=== PATIENT | male | born 1950 | race Caucasian/White ===

== ENCOUNTER 2018-01-28 00:04 | Observation (INO) ==
--- NOTE | 2018-01-28 00:11 | Emergency Department Note ---
Disposition Clinical Impression: Palpitations Disposition: Admitted As Inpatient Condition: Undetermined General Adult HPI - General Stated complaint: think im having a heat attack Time Seen by Provider: 01/28/18 00:10 - Related Data Allergies Allergy/AdvReac Type Severity Reaction Status Date / Time No Known Allergies Allergy Verified 01/28/18 01:07 Course Vital Signs Temperature 98.7 F 01/28/18 00:10 Pulse Rate 117 01/28/18 00:10 Respiratory Rate 18 01/28/18 00:10 Blood Pressure 130/90 01/28/18 00:10 O2 Sat by Pulse Oximetry 98 01/28/18 00:10 Temperature 97.6 F 01/28/18 04:45 Pulse Rate 79 01/28/18 04:45 Respiratory Rate 16 01/28/18 04:45 Blood Pressure 127/62 01/28/18 04:45 O2 Sat by Pulse Oximetry 96 01/28/18 04:45 Oxygen Delivery Oxygen Delivery Room Air Medical Decision Making - Lab Data Result diagrams: 01/28/18 00:33 01/28/18 00:33 Lab Results 01/28/18 01/28/18 01/28/18 Range/Units 00:33 00:33 00:33 WBC 7.3 (4.3-11.1) K/mcL RBC 4.95 (4.19-5.50) M/mcL Hgb 14.0 (12.9-16.9) g/dL Hct 42.6 (37.5-50.1) % MCV 86.1 (83.0-100.0) fL MCH 28.3 (28.0-33.3) pg MCHC 32.9 (31.6-35.5) g/dL RDW 13.2 (11.5-14.5) % Plt Count 161 (140-400) K/mcL MPV 11.3 (9.4-12.4) fL Immature Gran % 0.3 (0-4) % Seg Neutrophils % 75.2 % Lymphocytes % 14.7 % Monocytes % 6.8 % Eosinophils % 2.3 % Basophils % 0.7 % Neutrophils # 5.5 (1.6-8.9) K/mcL Lymphocytes # 1.1 (0.6-4.6) K/mcL Monocytes # 0.5 (0.0-1.3) K/mcL Eosinophils # 0.2 (0.0-0.6) K/mcL Basophils # 0.1 (0.0-0.2) K/mcL PT 12.3 H (9.4-12.1) Seconds INR 1.1 APTT 30.3 (26.0-36.0) Seconds D-Dimer 294 (0-500) ng/mLFEU Sodium 137 (136-145) mEq/L Potassium 3.1 L (3.5-5.1) mEq/L Chloride 99 (98-107) mEq/L Carbon Dioxide 27 (23-29) mEq/L BUN 18 (8-23) mg/dL Creatinine 0.89 (0.70-1.30) mg/dL Est GFR ( Amer) > 60 (> 60) Est GFR (Non-Af Amer) > 60 (> 60) BUN/Creatinine Ratio 20 (6-26) Glucose 139 H (70-105) mg/dL Calculated Osmolality 288 (280-300) Calcium 9.6 (8.6-10.3) mg/dL Magnesium 1.8 (1.6-2.6) mg/dL Troponin I 0.03 (< 0.04) ng/mL TSH 3.183 (0.340-5.600) mcIU/mL Urine Color (Yellow) Urine Clarity (Clear) Urine pH (5.0-8.0) pH Units Ur Specific [place] (1.010-1.025) Urine Protein (Neg-Trace) mg/dL Urine Glucose (UA) (Normal) mg/dL Urine Ketones (Negative) mg/dL Urine Blood (Negative) Urine Nitrite (Negative) Urine Bilirubin (Negative) Urine Urobilinogen (Normal) mg/dL Ur Leukocyte Esterase (Negative) Ur Culture Indicated? (NO) 01/28/18 Range/Units 00:49 WBC (4.3-11.1) K/mcL RBC (4.19-5.50) M/mcL Hgb (12.9-16.9) g/dL Hct (37.5-50.1) % MCV (83.0-100.0) fL MCH (28.0-33.3) pg MCHC (31.6-35.5) g/dL RDW (11.5-14.5) % Plt Count (140-400) K/mcL MPV (9.4-12.4) fL Immature Gran % (0-4) % Seg Neutrophils % % Lymphocytes % % Monocytes % % Eosinophils % % Basophils % % Neutrophils # (1.6-8.9) K/mcL Lymphocytes # (0.6-4.6) K/mcL Monocytes # (0.0-1.3) K/mcL Eosinophils # (0.0-0.6) K/mcL Basophils # (0.0-0.2) K/mcL PT (9.4-12.1) Seconds INR APTT (26.0-36.0) Seconds D-Dimer (0-500) ng/mLFEU Sodium (136-145) mEq/L Potassium (3.5-5.1) mEq/L Chloride (98-107) mEq/L Carbon Dioxide (23-29) mEq/L BUN (8-23) mg/dL Creatinine (0.70-1.30) mg/dL Est GFR ( Amer) (> 60) Est GFR (Non-Af Amer) (> 60) BUN/Creatinine Ratio (6-26) Glucose (70-105) mg/dL Calculated Osmolality (280-300) Calcium (8.6-10.3) mg/dL Magnesium (1.6-2.6) mg/dL Troponin I (< 0.04) ng/mL TSH (0.340-5.600) mcIU/mL Urine Color Yellow (Yellow) Urine Clarity Clear (Clear) Urine pH 7.0 (5.0-8.0) pH Units Ur Specific [place] 1.010 (1.010-1.025) Urine Protein Negative (Neg-Trace) mg/dL Urine Glucose (UA) Normal (Normal) mg/dL Urine Ketones Negative (Negative) mg/dL Urine Blood Negative (Negative) Urine Nitrite Negative (Negative) Urine Bilirubin Negative (Negative) Urine Urobilinogen Normal (Normal) mg/dL Ur Leukocyte Esterase Negative (Negative) Ur Culture Indicated? NO (NO) Attestation Statement - Attestation Attestation: For this encounter, I have reviewed the DIRECT SERVICE WORKER or PA documentation, treatment plan, and medical decision making; and I have had face to face time with this patient. [id number] time provided Patient seen upon his arrival to the medical treatment area. He had complained of some chest pain. He appears in no acute distress on exam. EKG reviewed by me
--- NOTE | 2018-01-28 00:45 | Emergency Department Note ---
Disposition Clinical Impression: Palpitations Disposition: Admitted As Inpatient Condition: Undetermined Forms: ED Satisfaction Letter General Adult HPI - General Chief complaint: ED Arrhythmia/Palpitations Stated complaint: think im having a heat attack Time Seen by Provider: 01/28/18 00:10 Source: patient Mode of arrival: EMS Limitations: no limitations Nursing Notes Reviewed: Yes Vital Signs Reviewed: Yes - History of Present Illness HPI Narrative: Patient presents emergency Department from home via EMS for one episode of lightheadedness and feeling extremely hot, accompanied with lightheadedness and dizziness that lasted only a few minutes and then slowly but surely patient began to feel like himself again, he stated that he felt like his heart was being very hard at times like when you awaken from a nightmare and then he felt it "flutter"which gave him a weird sensation. Patient with a new history of A. fib, chronic history of hypertension, prediabetes in August/2017. 2 attempts at a stress test have been unsuccessful due to patient being intolerable other procedure. Patient is having an echocardiogram in the morning and has had his metoprolol for 2 total doses all day as he is preparing for the echocardiogram. He states it was time for him to take his clonidine (2200) which he noted and he was still feeling after effects of being dizzy and warm so he called EMS to bring him here. He states the longer he has had a clonidine and his system the more normal he has felt and he is fairly certain that it was his low pressure making him feel this way. By the time he arrived in our emergency department he said he feels at baseline. Patient states nothing like this is ever happened to him before. Denies loss of consciousness, syncope, shortness of breath, dyspnea, chest pain , edema, nausea, vomiting, diarrhea, recent illness. He has been feeling palpitations however this is not more than his normal Home medications include clonidine 0.2 mg 3 times a day, metoprolol 50 mg in the morning 100 mg in the evening, fosinopril/HCTZ 20/12.5, atorvastatin 10 mg, vitamin D, aspirin 81 mg, amlodipine 2.5 mg. Patient states he has been on a beta nicholas for a very long time he used to be on atenolol and then either just before ordering after his PCP found the A. fib he was switched to metoprolol he stated he was switched because of a shortage for atenolol. Onset (ago): Just [employer]EL[employer] Location: chest Pain Scale: 0 Associated symptoms: Reports: chest pain (A little, though this is described more as palpitations), diaphoresis, shortness of breath. Denies: confusion, cough, fever/chills, headaches, loss of appetite, malaise, nausea/vomiting, rash , seizure, syncope, weakness Treatments Prior to Arrival: other (Prescription clonidine administration) - Related Data Allergies Allergy/AdvReac Type Severity Reaction Status Date / Time No Known Allergies Allergy Verified 01/28/18 01:07 All systems ED: reviewed and negative except as stated. Review of Systems: As Per HPI Constitutional: Reports: as per HPI. Denies: fever, chills, weakness Eyes: Reports: as per HPI. Denies: vision change ENT ED: Reports: as per HPI. Denies: ear pain, hearing loss, epistaxis, congestion, dysphagia Cardiovascular: Reports: palpitations, dyspnea on exertion. Denies: edema, syncope Respiratory: Reports: as per HPI, dyspnea (During palpitations) Gastrointestinal: Reports: as per HPI. Denies: abdominal pain, nausea, vomiting , diarrhea Genitourinary: Reports: as per HPI. Denies: urgency, dysuria, frequency, hematuria Integumentary: Denies: rash Neurological: Denies: headache, weakness, numbness Past Medical History - Past Medical History Attestation: Yes The following information was validated with the patient. Source: patient Medical history: Reports: atrial fibrillation, hypertension, other (Prediabetes) Psychiatric history: Reports: no psych history - Social History Smoking Status: Never smoker Smokeless Tobacco Status: Yes Alcohol use: Reports: occasionally Drug use: Reports: none Physical Exam - General Limitations: no limitations General appearance: alert, in no apparent distress - Head Head exam: atraumatic, normocephalic, normal inspection - Eye Eye exam: Present: normal appearance, PERRL, EOMI - ENT ENT exam: normal exam, mucous membranes moist - Neck Neck exam: Present: normal inspection, full ROM, trachea midline - Chest Chest inspection: Present: normal inspection, symmetric chest wall rise - Respiratory Respiratory exam: Present: normal lung sounds bilaterally - Cardiovascular Cardiovascular exam: Present: tachycardia, irregular rhythm - Abdominal Exam Abdominal exam: Present: soft, Non-Tender, normal bowel sounds. Absent: tenderness, distention, guarding, rebound, rigidity - Neurological Exam Neurological exam: Present: alert, oriented X3 - Psychiatric Psychiatric exam: Present: normal affect, normal mood - Skin Skin exam: Present: warm, dry, intact, normal color Course Course Narrative: Patient presents emergency Department from home via EMS for one episode of lightheadedness and feeling extremely hot, accompanied with lightheadedness and dizziness that lasted only a few minutes and then slowly but surely patient began to feel like himself again, he stated that he felt like his heart was being very hard at times like when you awaken from a nightmare and then he felt it "flutter"which gave him a weird sensation. Patient stated he was sitting in his chair and all this happened Patient with a new history of A. fib, chronic history of hypertension, prediabetes in August/2017. 2 attempts at a stress test have been unsuccessful due to patient being intolerable other procedure. Patient is having an echocardiogram in the morning and has had his metoprolol for 2 total doses all day as he is preparing for the echocardiogram. He states it was time for him to take his clonidine (2200) which he noted and he was still feeling after effects of being dizzy and warm so he called EMS to bring him here. He states the longer he has had a clonidine and his system the more normal he has felt and he is fairly certain that it was his low pressure making him feel this way. By the time he arrived in our emergency department he said he feels at baseline. Patient states nothing like this is ever happened to him before. He had dinner this evening and has had nothing to eat since with resolution of symptoms. He does not think this could have been going to all without eating or hypoglycemic attack, though he admits his never had a hypoglycemic attack. Denies loss of consciousness, syncope, shortness of breath, dyspnea, chest pain , edema, nausea, vomiting, diarrhea, recent illness. He has been feeling palpitations however this is not more than his normal Home medications include clonidine 0.2 mg 3 times a day, metoprolol 50 mg in the morning 100 mg in the evening, fosinopril/HCTZ 20/12.5, atorvastatin 10 mg, vitamin D, aspirin 81 mg, amlodipine 2.5 mg. Patient states he has been on a beta nicholas for a very long time he used to be on atenolol and then either just before ordering after his PCP found the A. fib he was switched to metoprolol he stated he was switched because of a shortage for atenolol. Very pleasant well-developed, well-hydrated elderly man. Respirations are easy and even on room air, he appears in no acute distress. He is able speak in full sentences without difficulty, alert and oriented 3. At time of arrival patient does not appear in any distress, he states that he is feeling back to normal, without palpitations, dizziness, lightheadedness. . He does not appear dry. He denies drug or alcohol use. Tachycardia probably from not having his metoprolol today as his body is used to having it. We will rule out cardiac causes as well as respiratory and the basic lab work. Differential diagnosis at this time dysrhythmias, ischemia, A. fib RVR, infectious etiologies, palpitations. He is noted to be tachycardic EKG shows sinus tachycardia with PVCs, comparison to old EKG with changes in axis, as well as possible ischemia. - Reevaluation(s) Reevaluation #1: Labs return benign, troponin within normal limits. Patient had continued to be tachycardic, regular 500 mL bolus patient heart rate now down under 100. Spoke with attending Dr. Le, admit patient for EKG changes, chest pain, palpitations, new onset A. fib for monitoring status. Spoke with Dr. Lopez hospitalist for admission. Hospitalist agreeable to take patient. We will replace potassium and give a Mac bolus while awaiting placement. Patient agreeable to admission. Time: 03:00 Vital Signs Temperature 98.7 F 01/28/18 00:10 Pulse Rate 117 01/28/18 00:10 Respiratory Rate 18 01/28/18 00:10 Blood Pressure 130/90 01/28/18 00:10 O2 Sat by Pulse Oximetry 98 01/28/18 00:10 Temperature 98.7 F 01/28/18 00:10 Pulse Rate 121 01/28/18 00:35 Respiratory Rate 18 01/28/18 00:35 Blood Pressure 136/90 01/28/18 00:35 O2 Sat by Pulse Oximetry 94 01/28/18 00:35 Oxygen Delivery Oxygen Delivery Room Air
[2018-01-28 00:50] LABS: Basophils # 0.1 K/mcL (0.0-0.2); Basophils % 0.7 %; Eosinophils # 0.2 K/mcL (0.0-0.6); Eosinophils % 2.3 %; Hematocrit 42.6 % (37.5-50.1); Immature Granulocytes % 0.3 % (0-4); Lymphocytes # 1.1 K/mcL (0.6-4.6); Lymphocytes % 14.7 %; Mean Corpuscular HGB Conc 32.9 g/dL (31.6-35.5); Mean Corpuscular Hemoglobin 28.3 pg (28.0-33.3); Mean Corpuscular Volume 86.1 fL (83.0-100.0); Mean Platelet Volume 11.3 fL (9.4-12.4); Monocytes # 0.5 K/mcL (0.0-1.3); Monocytes % 6.8 %; Neutrophils # 5.5 K/mcL (1.6-8.9); Platelet Count 161 K/mcL (140-400); Red Blood Count 4.95 M/mcL (4.19-5.50); Red Cell Distribution Width 13.2 % (11.5-14.5); Segmented Neutrophils % 75.2 %
[2018-01-28 01:00] LABS: Bilirubin,Urine Negative (Negative); Blood,Urine Negative (Negative); Clarity,Urine Clear (Clear); Color,Urine Yellow (Yellow); Glucose,Urine (UA) Normal (Normal); Ketones,Urine Negative (Negative); Leukocyte Esterase,Urine Negative (Negative); Nitrite,Urine Negative (Negative); Protein,Urine Negative (Neg-Trace); Urobilinogen,Urine Normal (Normal)
[2018-01-28 01:00] LABS: INR 1.1; Prothrombin Time 12.3 Seconds (9.4-12.1)
[2018-01-28 01:02] LABS: Activated Partial Thrombo Time 30.3 Seconds (26.0-36.0)
[2018-01-28 01:07] LABS: BUN/Creatinine Ratio 20 (6-26); Blood Urea Nitrogen 18 mg/dL (8-23); Calcium 9.6 mg/dL (8.6-10.3); Carbon Dioxide 27 mEq/L (23-29); Chloride 99 mEq/L (98-107); Glucose 139 mg/dL (70-105); Magnesium 1.8 mg/dL (1.6-2.6); Osmolality,Calculated 288 (280-300); Potassium 3.1 mEq/L (3.5-5.1); Sodium 137 mEq/L (136-145); eGFR For African Americans > 60 (> 60); eGFR For Non-African Americans > 60 (> 60)
[2018-01-28 01:09] LABS: Troponin I 0.03 ng/mL (< 0.04)
[2018-01-28 01:22] LABS: Thyroid Stimulating Hormone 3.183 mcIU/mL (0.340-5.600)
[2018-01-28] MEDS ORDERED: 0.9 % Sodium Chloride 500 ML IVC ONE (01:54)
[2018-01-28] MEDS ORDERED: Magnesium Sulfate 2 GM in D5% in Water 100 ML IVPB ONE (03:01)
--- NOTE | 2018-01-28 04:29 | Internal Med History&Physical ---
Date of Encounter: 01/28/18 Time of Encounter: 04:00 Assessment and Plan (1) Chest pain Current visit: Yes Status: Acute Most likely due to tachycardia and hypertension. However given his age and comorbidities, he does have high risk for coronary artery disease. Will monitor with telemetry. Trend troponins. Consult cardiology for further recommendations as patient did not tolerate stress test done as outpatient. Qualifiers: Chest pain type: precordial pain Qualified Code(s): R07.2 - Precordial pain (2) Atrial fibrillation Current visit: Yes Status: Chronic Patient with history of atrial fibrillation. Was tachycardic on arrival. Heart rate is now improved. We will monitor with telemetry. Resume home medications. Qualifiers: Atrial fibrillation type: paroxysmal Qualified Code(s): I48.0 - Paroxysmal atrial fibrillation (3) Essential hypertension Current visit: Yes Status: Chronic Blood pressure is now improved. Continue home medications. Internal Medicine - H&P: HPI Chief complaint: Palpitations, Chest discomfort Admitted From: Emergency Dept Plans for Post Hospital Care: Home History of present illness: Mr. Wright is a 67 year old male patient with history of atrial fibrillation who was scheduled to undergo 2-D echocardiogram today presented to the ER with complaints of palpitations or chest discomfort and hot flashes with sweats that began yesterday evening. He had held his metoprolol per cardiology recommendations prior to his procedure. His symptoms lasted for about an hour and subsided after he took his clonidine. He feels much better now and is back to baseline. He had mild lightheadedness associated with that but that has also resolved. No shortness of breath. No fever no chills. No pedal edema. He has not had similar symptoms in the past. He was recently diagnosed with atrial fibrillation and was being worked up for it. He had previously attempted a stress test last month as part of workup but was not able to complete it as he did not tolerate the procedure. He denies any episodes of chest pain prior to this episode. Past Med Surg Social Fam HX - Past Medical History Attestation: Yes The following information was validated with the patient. Medical history: atrial fibrillation, hypertension, other Psychiatric history: no psych history - Social History Smoking Status: Never smoker Smokeless Tobacco Status: Yes (chew) Alcohol use: occasionally Drug use: none - Family History Mother Living Status: Age at : 84 Cause of : cancer Hx Family Cancer: Yes Father Living Status: Age at : 58 Cause of : [place] Hx Family Cardiac Disorders: Yes Internal Medicine - H&P: Meds 3 Allergy/AdvReac Type Severity Reaction Status Date / Time No Known Allergies Allergy Verified 01/28/18 01:07 All Systems PM: A 10-system review of systems was performed and is negative for pertinent findings except as documented above in the HPI. - Constitutional Constitutional: excessive sweating, malaise, no chills, no fever(s), no night sweats - EENT Eyes: no change in vision, no discharge, no pain, no photophobia Ears: no ear discharge, no ear pain, no tinnitus Nose, mouth and throat: no dysphagia, no nasal discharge, no neck pain, no sore throat - Cardiovascular Cardiovascular ROS IM: palpitations, no chest pain, no diaphoresis, no dyspnea, no lightheadedness, no syncope - Respiratory Respiratory: no cough, no dyspnea, no wheezing, no excessive phlegm production - Gastrointestinal Gastrointestinal: no abdominal pain, no diarrhea, no hematemesis, no hematochezia, no melena, no nausea, no vomiting - Musculoskeletal Musculoskeletal ROS IM: no numbness, no tingling - Integumentary Integumentary IM: no rash, no unusual bruising - Neurological Neurological ROS: no confusion, no convulsions, no focal weakness, no numbness, no tingling, no tremor(s) - Hematologic/Lymphatic Hematologic/Lymphatic: no easy bruising - Constitutional Vitals: Temp Pulse Resp BP Pulse Ox 98.7 F 87 18 133/78 94 01/28/18 00:10 01/28/18 02:32 01/28/18 02:32 01/28/18 02:32 01/28/18 02:32 General appearance: Present: cooperative, A&O X 3, answers questions appropriately - Eye Eye exam: Present: EOMI, PERRL, conjuntiva pink, sclera anicteric - Respiratory Respiratory exam: Present: CTAB. Absent: accessory muscle use, rales, rhonchi, wheezes - Cardiovascular Cardiovascular exam: Present: irregular rhythm, +S1, +S2. Absent: diastolic murmur, gallop, rubs, systolic murmur - GI/Abdominal GI/Abdominal exam: Present: normal bowel sounds, soft, no peritoneal signs. Absent: distended, tenderness - Extremities Exam Extremities exam: Present: warm, radial pulses palpable and symmetrical. Absent : calf tenderness, cyanotic, pedal edema - Neurological Exam Neurological exam: Present: CN II-XII intact, oriented X3, no focal deficits. Absent: facial droop, speech deficit Internal Med - H&P Results - Labs CBC & Chem 7: 01/28/18 00:33 01/28/18 00:33 - EKG Data -: EKG Interpreted by Myself Rate: tachycardia - EKG Data Interpretation IM: ischemic changes (Lateral ST segment depression) EKG comments: 01/28/18 04:34 A. fib - Impressions Impressions Chest X-Ray 01/28/18 00:33 IMPRESSION: Negative portable chest. D/ / Luis Reynolds MD / Luis Reynolds MD Interpreting Provider: Luis Reynolds MD
[2018-01-28] MEDS ORDERED: Naloxone 0.4 MG/ML INJ IVP PRN (04:37)
[2018-01-28] MEDS ORDERED: *HR* Heparin 5,000 UNIT/ML VIAL IVP PRN ×2 (05:46)
[2018-01-28] MEDS ORDERED: *HR* Heparin 5,000 UNIT/ML VIAL IVP ONE (05:46)
[2018-01-28 06:16] LABS: Hematocrit 43.3 % (37.5-50.1); Hemoglobin 14.1 g/dL (12.9-16.9); Mean Corpuscular HGB Conc 32.6 g/dL (31.6-35.5); Mean Corpuscular Hemoglobin 28.3 pg (28.0-33.3); Mean Corpuscular Volume 86.8 fL (83.0-100.0); Mean Platelet Volume 11.7 fL (9.4-12.4); Platelet Count 185 K/mcL (140-400); Red Blood Count 4.99 M/mcL (4.19-5.50); Red Cell Distribution Width 13.4 % (11.5-14.5)
[2018-01-28] MEDS: Heparin 25,000 UNIT/500 ML D5W 25,000 UNIT/500 ML BAG IVC SCH (06:33)
[2018-01-28] MEDS: Aspirin Enteric Coated 81 MG Tablet PO SCH (08:39)
[2018-01-28 09:31] LABS: Hemoglobin A1C 6.2 %
--- NOTE | 2018-01-28 14:27 | Cardiology Consult Note ---
<Shasta Craig - Last Filed: 01/28/18 14:21> Date of Encounter: 01/28/18 Time of Encounter: 13:00 Assessment and Plan (1) Essential hypertension Current Visit: Yes Status: Chronic Per cardiology: -Presented to [facility] with SBP 200s. -On multiple medications at home. -BP now 120-130s. -Will continue to monitro. (2) Elevated troponin Current Visit: Yes Status: Acute Per cardiology: -Troponin 0.03, 0.1, 0.1 in the setting of hypertension with BP at home 200 systolic. -Denies chest pain. -NO acute ischemic ECG changes. ECG with ST, tele with frequent PACs. -TTE pending. -ON heparin drip. -DO not suspect NSTEMI, suspect demand ischemia related to above. NO cardiac rehab consult warranted. -Will start asa, statin, beta nicholas. -Anticipate cardiology sign off pending no significant findings on TTE. -Of note, can consider outpatient stress echocardiogram since unable to undergo nuc stress due to claustrophobia. Discussion w patient/family: The assessment and plan as outlined above was discussed with the patient who expressed understanding and agreement. All questions were answered. Thank you for involving us in the care of your patient. Please call with any questions. Discussed and reviewed with Dr.John Nava. History of Present Illness Consult date: 01/28/18 Requesting physician: Yandel Warner Consult reason: elevated troponin Chief complaint: HTN, facial flushing History of present illness: Mr. Wright is a 67 year old male with a relevant past medical history of HTN, DM , hyperlipidemia. Patient states he has been attempting to complete outpateint stress test and has been off his antihypertensives for stress. Patient reports unable to complete nuclear stress since he is claustrophobic. He states he has been off his antihypertensives for almost a week since multiple attempts have been made to complete stress test. Patient reports he was at home and had facial flushing, he checked his BP and noted it was 200 systolic. Patient reports he then came to [facility]. Denies chest pain, increased shrotness of breath, or increased fatigue. Past Med Surg Social Fam HX - Past Medical History Attestation: Yes The following information was validated with the patient. Source: patient, old records reviewed Medical history: atrial fibrillation, hypertension, other Psychiatric history: no psych history - Social History Smoking Status: Never smoker Smokeless Tobacco Status: Yes (chew) Alcohol use: occasionally Drug use: none - Family History Mother Living Status: Age at : 84 Cause of : cancer Hx Family Cancer: Yes Father Living Status: Age at : 58 Cause of : [place] Hx Family Cardiac Disorders: Yes Medications and Allergies Aspirin [Lo-Dose Aspirin EC] 81 mg PO DAILY 01/28/18 [History] Atorvastatin [Lipitor] 10 mg PO HS 01/28/18 [History] Cholecalciferol (D-3) [Vitamin D] 2,000 unit PO DAILY 01/28/18 [History] Lisinopril-HCTZ 20-12.5 [Prinzide 20-12.5] 1 tab PO DAILY 01/28/18 [History] Metoprolol [Lopressor] 50 mg PO QAM 01/28/18 [History] Metoprolol [Lopressor] 100 mg PO HS 01/28/18 [History] amLODIPine [Norvasc] 2.5 mg PO DAILY 01/28/18 [History] cloNIDine HCl [Clonidine HCl] 0.4 mg PO TID 01/28/18 [History] 3 Allergy/AdvReac Type Severity Reaction Status Date / Time No Known Allergies Allergy Verified 01/28/18 01:07 All Systems Review: The remainder of the systems were reviewed and are negative - Cardiovascular Cardiovascular: as per HPI Physical Examination Vital Signs, Last 4 Hours Temp Pulse Resp BP Pulse Ox 01/28/18 11:20 97.4 F L 61 16 153/91 94 General: Conversant, No Apparent Distress HEENT: Atraumatic, Normocephaly, Mucus Membranes Moist Neck: No JVD, Normal carotid pulses Cardiac: Reg Rate and Rhythm, Normal S1 and S2, No Murmur Lungs: Normal Breath Sounds, No Wheeze, Rales, Rhonchi Neuro: Alert and responsive, No focal deficits noted Abdomen: Soft, Non-Tender Skin: No rashes noted on visualized skin Musculoskeletal: No Chest Wall Tenderness Extremities: No Clubbing, No Cyanosis, No Edema, Normal Pulses Results 01/28/18 05:46 01/28/18 00:33 Lab Results Impressions Chest X-Ray 01/28/18 00:33 IMPRESSION: Negative portable chest. D/ / Luis Reynolds MD / Luis Reynolds MD Interpreting Provider: Luis Reynolds MD Active Medications Aspirin (Aspirin Ec) 81 mg PO DAILY EDEL Stop: 07/30/18 09:01 Last Admin: 01/28/18 08:39 Dose: 81 mg Heparin Sodium (Porcine) (Heparin) 4,000 unit IVP Q6HR PRN PRN Reason: SEE COMMENTS Stop: 07/30/18 05:47 Heparin Sodium (Porcine) (Heparin) 2,000 unit IVP Q6H PRN PRN Reason: SEE COMMENTS Stop: 07/30/18 05:47 Last Admin: 01/28/18 13:50 Dose: 2,000 unit Heparin Sodium/Dextrose (Heparin 25,000 Unit/500 Ml D5w) 25,000 unit in 500 mls @ 20.026 mls/hr IVC .Q24H EDEL; 9.8 UNIT/KG/HR PRN Reason: Protocol Stop: 07/30/18 06:01 Last Titration: 01/28/18 13:48 Dose: 11.74 unit/kg/hr, 24 mls/hr Naloxone HCl (Narcan) 0.4 mg IVP Q2MIN PRN PRN Reason: SEE COMMENTS Stop: 07/30/18 04:38 Laboratory Tests 01/28/18 01/28/18 01/28/18 00:33 00:33 04:51 Hgb 14.0 Creatinine 0.89 Troponin I 0.03 0.10 H* 01/28/18 10:32 Hgb Creatinine Troponin I 0.10 H* - Imaging and Cardiology Chest Xray: report reviewed Echo: pending - EKG Interpretation EKG results cardiology: personally reviewed (ECG with ST, HR 125.), other ( Telemetry reviewed with average HR previous 12 hours noted to be 78, SR with frequent PACS.) Consult Discharge Plan - Plan Referrals: Sydnee Thakkar, REMEDIAL TEACHER [Primary Care Provider] - <Sanjiv Nava - Last Filed: 01/28/18 16:05> Date of Encounter: 01/28/18 - Attending Attestation I have personally performed a face to face evaluation on this patient. I have reviewed and agree with the care plan. History and Exam by me shows: Admitted with palpitations. Noted to have frequent PACs. Has not been able to tolerate stress test. Would recommend restart BBlocker and outpt. stress echo. Assessment and Plan Discussion w patient/family: The assessment and plan as outlined above was discussed with the patient and/or family members who expressed understanding and agreement. All questions were answered. Thank you for involving us in the care of your patient. Please call with any questions. History of Present Illness History of present illness: Mr. Wright is a 67 year old male All Systems Review: The remainder of the systems were reviewed and are negative Physical Examination Vital Signs, Last 4 Hours Temp Pulse Resp BP Pulse Ox 01/28/18 15:17 97.9 F 75 16 155/76 97 Results 01/28/18 05:46 01/28/18 00:33 Lab Results 01/28/18 01/28/18 01/28/18 04:51 05:46 06:30 WBC 8.1 Hgb 14.1 Hct 43.3 Plt Count 185 APTT 31.0 Troponin I 0.10 H* 01/28/18 01/28/18 10:32 12:42 WBC Hgb Hct Plt Count APTT 53.7 H D Troponin I 0.10 H*
[2018-01-28] MEDS: Metoprolol XL (24 HR) Succ 25 MG TAB.ER.24H PO SCH (15:04)
--- NOTE | 2018-01-28 16:56 | Event Note ---
Date of Encounter: 01/28/18 Time of Encounter: 16:39 1. Chest pain: Presented with chest pain that started eating prior to arrival. Serial troponin troponin 0.03, 0.1, 0.1. EKG without acute ST changes. Recently had outpatient stress test which he was unable to complete due to claustrophobia. Chest pain now resolved. There was concern for an STEMI on arrival and he was started on heparin drip; continue for now. Cont home ASA, BB and statin. initiated per cardiology. Cardiology following; await further recommendations. TTE pending 2. HTN: per hx. BP uncontrolled on arrival; possibly contributing to chest pain. BP improved with resuming home BP medication. Monitor BP and titrate PRN 3. Paroxysmal atrial fibrillation: per patient reported hx. Not on anticoagulation at home (he states new diagnosis as of 08/2017 and PCP has been undecided on whether to initiate anticoagulation). Rate controlled. Continue home BB. Cardiology following 4. DVT prophyalxis: heparin gtt
[2018-01-28] MEDS ORDERED: Melatonin 3 MG TABLET PO SCH (23:15)
[2018-01-29] MEDS ORDERED: Lisinopril-HCTZ 20-12.5mg TABLET PO SCH (00:15)
[2018-01-29] MEDS: cloNIDine HCl 0.1 MG TABLET PO SCH ×3 (00:46→14:05)
[2018-01-29 01:21] LABS: Hematocrit 45.2 % (37.5-50.1); Hemoglobin 14.4 g/dL (12.9-16.9); Mean Corpuscular HGB Conc 31.9 g/dL (31.6-35.5); Mean Corpuscular Hemoglobin 27.4 pg (28.0-33.3); Mean Corpuscular Volume 86.1 fL (83.0-100.0); Mean Platelet Volume 11.3 fL (9.4-12.4); Platelet Count 187 K/mcL (140-400); Red Blood Count 5.25 M/mcL (4.19-5.50); Red Cell Distribution Width 13.4 % (11.5-14.5)
[2018-01-29 01:43] LABS: BUN/Creatinine Ratio 17 (6-26); Blood Urea Nitrogen 17 mg/dL (8-23); Calcium 9.9 mg/dL (8.6-10.3); Carbon Dioxide 27 mEq/L (23-29); Chloride 102 mEq/L (98-107); Glucose 105 mg/dL (70-105); Osmolality,Calculated 290 (280-300); Potassium 3.7 mEq/L (3.5-5.1); Sodium 139 mEq/L (136-145); eGFR For African Americans > 60 (> 60); eGFR For Non-African Americans > 60 (> 60)
[2018-01-29] MEDS: Heparin 25,000 UNIT/500 ML D5W 25,000 UNIT/500 ML BAG IVC SCH (04:45)
[2018-01-29] MEDS: Aspirin Enteric Coated 81 MG Tablet PO SCH (08:22)
[2018-01-29] MEDS: Metoprolol XL (24 HR) Succ 25 MG TAB.ER.24H PO SCH (08:22)
--- NOTE | 2018-01-29 11:14 | Cardiology Progress Note ---
Date of Encounter: 01/29/18 Time of Encounter: 11:11 Assessment and Plan (1) Elevated troponin Current Visit: Yes Status: Acute Per cardiology: -Troponin 0.03, 0.1, 0.1 in the setting of hypertension with BP at home 200 systolic. -Denies chest pain. -NO acute ischemic ECG changes. ECG with ST, tele with frequent PACs. -TTE pending. -ON heparin drip. -DO not suspect NSTEMI, suspect demand ischemia related to above. NO cardiac rehab consult warranted. Will stop heparin gtt. -Continue asa, statin, beta nicholas. -Of note, can consider outpatient stress echocardiogram since unable to undergo nuc stress due to claustrophobia. -TTE still pending. Cardiology signing off. Reconsult PRN or if significant findings on TTE. Will coordinate outpt follow-up in 2-3 weeks. (2) Essential hypertension Current Visit: Yes Status: Chronic Per cardiology: -Presented to [facility] with SBP 200s. -On multiple medications at home. -Hypertensive overnight, but 120s/70s this AM. Discussion w patient/family: The assessment and plan as outlined above was discussed with the patient and/or family members who expressed understanding and agreement. All questions were answered. Thank you for involving us in the care of your patient. Please call with any questions. I will discuss all the above with Dr. Sanjiv Nava and make changes as necessary. Subjective Principal diagnosis: Elevated troponin, hypertensive urgency Interval history: Pt denies chest pain, dyspnea, or any other acute cardiac complaints this AM. TTE pending. Objective Vital Signs, Last 4 Hours Temp Pulse Resp BP Pulse Ox 01/29/18 07:35 97.7 F 60 16 124/77 98 Vital Signs Temp Pulse Resp BP Pulse Ox 01/29/18 07:35 97.7 F 60 16 124/77 98 01/29/18 02:43 75 183/72 01/29/18 02:41 98 F 16 178/101 97 01/28/18 22:51 98 F 81 16 179/96 97 01/28/18 18:39 98.2 F 59 16 147/87 96 01/28/18 15:17 97.9 F 75 16 155/76 97 01/28/18 11:20 97.4 F L 61 16 153/91 94 Intake and Output 03/08/0901/29/18 01/29/18 23:59 07:59 15:59 Intake Total 400 / 400 256 / 256 240 / 240 Balance 400 / 400 256 / 256 240 / 240 Intake: IV Fluids 160 / 160 196 / 196 Heparin 25,000 UNIT/500 ML D5W 160 / 160 196 / 196 25,000 unit In 500 ml @ 9.8 UNIT/KG/HR 20.026 mls/hr IVC . Q24H EDEL Rx#:[id number] Oral 240 / 240 60 / 60 240 / 240 Other: Meal Dinner Breakfast Percent of Meal Consumed 100% 100% # Voids 1 2 Weight 101.877 kg Patient Weight 01/29/18 23:59 Weight 101.877 kg General: Conversant, No Apparent Distress HEENT: Atraumatic, Normocephaly, Mucus Membranes Moist Neck: No JVD, Normal carotid pulses Cardiac: Reg Rate and Rhythm, Normal S1 and S2, No Murmur Lungs: Normal Breath Sounds, No Wheeze, Rales, Rhonchi Neuro: Alert and responsive, No focal deficits noted Abdomen: Soft, Non-Tender Skin: No rashes noted on visualized skin Musculoskeletal: No Chest Wall Tenderness Extremities: No Clubbing, No Cyanosis, No Edema, Normal Pulses Results 01/29/18 01:04 01/29/18 01:04 Lab Results 01/28/18 01/28/18 01/28/18 10:32 12:42 19:04 WBC Hgb Hct Plt Count APTT 53.7 H D 64.3 H Sodium Potassium Chloride Carbon Dioxide BUN Creatinine Glucose Calcium Troponin I 0.10 H* 01/29/18 01/29/18 01/29/18 01:04 01:04 01:04 WBC 8.6 Hgb 14.4 Hct 45.2 Plt Count 187 APTT 69.2 H Sodium 139 Potassium 3.7 Chloride 102 Carbon Dioxide 27 BUN 17 Creatinine 1.03 Glucose 105 Calcium 9.9 Troponin I Short CBC 01/29/18 Range/Units 01:04 WBC 8.6 (4.3-11.1) K/mcL Hgb 14.4 (12.9-16.9) g/dL Hct 45.2 (37.5-50.1) % Plt Count 187 (140-400) K/mcL BMP 01/29/18 Range/Units 01:04 Sodium 139 (136-145) mEq/L Potassium 3.7 (3.5-5.1) mEq/L Chloride 102 (98-107) mEq/L Carbon Dioxide 27 (23-29) mEq/L BUN 17 (8-23) mg/dL Creatinine 1.03 (0.70-1.30) mg/dL Glucose 105 (70-105) mg/dL Calcium 9.9 (8.6-10.3) mg/dL Cardiac Enzymes 01/28/18 Range/Units 10:32 Troponin I 0.10 H* (< 0.04) ng/mL Active Medications Aspirin (Aspirin Ec) 81 mg PO DAILY EDEL Stop: 07/30/18 09:01 Last Admin: 01/29/18 08:22 Dose: 81 mg Atorvastatin Calcium (Lipitor) 40 mg PO HS [facility] Stop: 07/30/18 21:01 Last Admin: 01/28/18 20:29 Dose: 40 mg Clonidine HCl (Clonidine Hcl) 0.4 mg PO TID EDEL Stop: 07/31/18 00:16 Last Admin: 01/29/18 08:22 Dose: 0.4 mg Lisinopril/HCTZ (Prinzide 20-12.5) 1 each PO DAILY EDEL Stop: 07/31/18 00:16 Last Admin: 01/29/18 00:46 Dose: 1 each Melatonin (Melatonin) 6 mg PO HS EDEL Stop: 07/30/18 23:16 Last Admin: 01/28/18 23:23 Dose: 6 mg Metoprolol Succinate (Toprol Xl) 25 mg PO DAILY EDEL Stop: 07/30/18 14:46 Last Admin: 01/29/18 08:22 Dose: 25 mg Naloxone HCl (Narcan) 0.4 mg IVP Q2MIN PRN PRN Reason: SEE COMMENTS Stop: 07/30/18 04:38 - Imaging and Cardiology Echo: pending - EKG Interpretation EKG results cardiology: other (12 hr tele AVG HR 69, SR with frequent PACs.) Consult Discharge Plan - Plan Referrals: Sydnee Thakkar, CLASSIFICATION OFFICER [Primary Care Provider] -
[2018-01-29 11:18] VITALS: BP 99/61
--- NOTE | 2018-01-29 12:32 | Electrocardiograph Report ---
[address] [address] Test Date: 2018-01-28 Pat Name: Sanjiv Wright Department: 104 Room: 3B Gender: M Paralegal Specialist: : 1950 Requested By: Yandel Warner Order Number: [id number] Reading MD: Sanjiv Nava Measurements Intervals [place] Rate: 127 P: -4 MO: 234 QRS: 12 QRSD: 108 T: 105 QT: 347 QTc: 422 Interpretive Statements SINUS TACHYCARDIA WITH FIRST DEGREE AV BLOCK WITH FREQUENT VENTRICULAR PREMATURE COMPLEXES Electronically Signed On 01-29-2018 12:31:04 EST by Sanjiv Nava
--- NOTE | 2018-01-29 12:33 | Electrocardiograph Report ---
[place] [address] Test Date: 2018-01-28 Pat Name: Sanjiv Wright Department: 113 Room: 3B Gender: Reel Cutter: : 1950 Requested By: Judi Shaffer Order Number: [id number] Reading MD: Sanjiv Nava Measurements Intervals [place] Rate: 78 P: 30 MS: 192 QRS: 23 QRSD: 98 T: 54 QT: 412 QTc: 446 Interpretive Statements SINUS RHYTHM WITH FREQUENT SUPRAVENTRICULAR PREMATURE COMPLEXES ABNORMAL RHYTHM ECG Electronically Signed On 01-29-2018 12:31:51 EST by Sanjiv Nava
--- NOTE | 2018-01-29 13:44 | Discharge Summary ---
Orders not resulted at time of discharge: Pending orders 01/30/18 01:04 PTT [Activated Partial Thrombo Time] [COAG] Timed Date of Encounter: 01/29/18 Time of Encounter: 13:42 - Discharge Diagnosis (1) Elevated troponin Priority: Primary Status: Acute Comments: serial troponin 0.03, 0.1, 0.1 and in the setting of uncontrolled BP. EKG without acute ST changes. He did report chest pain on arrival which was likely secondary to uncontrolled blood pressure. Evaluated by Cardiology who did not suspect NSTEMI but rather demand ischemia related to uncontrolled HTN. 01/2018 TTE with EF 60%, no valvular dysfunction and no wall motion abnormalities. Of note, patient recently underwent stress test but unable to complete due to claustrophobia. Cont home ASA, statin, BB. Recommend outpatient cardiology follow-up (2) Essential hypertension Priority: Primary Status: Chronic Comments: per hx. BP uncontrolled on arrival with SBPs in 170s-180s. Etiology unknown as patient reports medication compliance. BP normalized with resuming home BP medication. Recommend follow-up with PCP within 1 week for BP recheck (3) Palpitations Priority: Primary Status: Acute Comments: per Cardiology note; patient had Holter monitor 09/2017 that showed PACs and episodes of SVT but no atrial fibrillation. No anticoagulation warranted at this time. Cont home BB Hospital course: Mr. Wright is a 67 year old male with past cycle history essential hypertension and palpitations who presented to [facility] on 01/28/2018 with chest pain. He was found to have uncontrolled BP and there was initially concern for an STEMI with possible new ST segment depression on EKG and elevated troponin. Initially managed with heparin drip. He was evaluated by cardiology who did not suspect NSTEMI but rather demand ischemia secondary to uncontrolled blood pressure. He was discharged home in stable condition with outpatient follow-up. Please see assessment and plan for further details. - Time Spent with Patient Total time spent providing and/or coordinating discharge services: - Discharge Medications Home Medications: Aspirin [Lo-Dose Aspirin EC] 81 mg PO DAILY 01/28/18 [History] Atorvastatin [Lipitor] 10 mg PO HS 01/28/18 [History] Cholecalciferol (D-3) [Vitamin D] 2,000 unit PO DAILY 01/28/18 [History] Lisinopril-HCTZ 20-12.5 [Prinzide 20-12.5] 1 tab PO DAILY 01/28/18 [History] Metoprolol [Lopressor] 50 mg PO QAM 01/28/18 [History] Metoprolol [Lopressor] 100 mg PO HS 01/28/18 [History] amLODIPine [Norvasc] 2.5 mg PO DAILY 01/28/18 [History] cloNIDine HCl [Clonidine HCl] 0.4 mg PO TID 01/28/18 [History] Allergies/Adverse Reactions: 3 Allergy/AdvReac Type Severity Reaction Status Date / Time No Known Allergies Allergy Verified 01/28/18 01:07 Date of admission: 01/28/18 03:15 Primary care physician: Sydnee Thakkar CNP Consults: 01/28/18 04:38 Consult to Cardiology [CONS] Routine Comment: Consulting Provider: [facility] [place] Reason for Consult: Chest discomfort/ abnormal EKG changes Call Completed: No Discharging clinician: Yanique Avina Anticipated date of discharge: 01/29/18 - Constitutional Vitals: Temp Pulse Resp BP Pulse Ox 97.7 F 57 18 99/61 97 01/29/18 11:14 01/29/18 11:14 01/29/18 11:14 01/29/18 11:14 01/29/18 11:14 General appearance: Present: cooperative, A&O X 3, answers questions appropriately - Head Head exam: Present: atraumatic, normocephalic - Eye Eye exam: Present: PERRL, conjuntiva pink, sclera anicteric Pupils: Present: PERRL - Neck Neck exam general surgery: Present: supple, trachea midline. Absent: lymphadenopathy - Respiratory Respiratory exam: Present: CTAB. Absent: accessory muscle use, rales, rhonchi, wheezes - Cardiovascular Cardiovascular exam: Present: RRR, +S1, +S2. Absent: diastolic murmur, gallop, rubs, systolic murmur - GI/Abdominal GI/Abdominal exam: Present: normal bowel sounds, soft, no peritoneal signs. Absent: distended, tenderness - Extremities Exam Extremities exam: Present: warm, radial pulses palpable and symmetrical. Absent : calf tenderness, cyanotic, pedal edema - Neurological Exam Neurological exam: Present: CN II-XII intact, oriented X3, no focal deficits. Absent: pronater drift, facial droop, speech deficit - Skin Skin exam: Present: dry, intact - Patient Status Disposition: Home, Self-Care Condition: Good Functional capacity at discharge: independent ambulation Overall status at discharge: patient is back to baseline - Discharge Instructions Instructions: Chest Pain (DC), Cardiac Stress Test (DC) Follow Up With: North Doshi CNP [Advanced Practice Nurse] - (A follow-up appointment will be made for you within 2-3 weeks. If you do not hear from the office please call them after that time) Sydnee Thakkar CNP [Primary Care Provider] - (Please make an appointment within 1 week for follow-up appointment) - Diet and Activity Activity: increase activity as tolerated Diet: low fat, low cholesterol
== END 2018-01-29 15:32 | disposition home or self-care (01) ==
LOC: EMEROO 00:04 → 3BNU 00:04
PROVIDERS: ADMIT Internal Medicine; ATTEND Registered Nurse